=== PATIENT | male | born 1990 | race Caucasian/White ===

== ENCOUNTER 2016-07-19 14:42 | Emergency (ER) ==
[2016-07-19 14:52] VITALS: BP 152/97
[2016-07-19 15:04] LABS: URINE CULTURE PL NEEDED? NO; URINE SOURCE CLEAN CATCH
[2016-07-19 15:22] LABS: UR AMPHETAMINES QUAL NONE DETECTED (NONE DETECT); UR BARBITUATES QUAL NONE DETECTED (NONE DETECT); UR BENZODIAZEPIN QUAL NONE DETECTED (NONE DETECT); UR CANNABINOIDS QUAL NONE DETECTED (NONE DETECT); UR COCAINE QUAL NONE DETECTED (NONE DETECT); UR MDMA QUAL NONE DETECTED (NONE DETECT); UR METHADONE QUAL NONE DETECTED (NONE DETECT); UR METHAMPHETAMINE QUAL NONE DETECTED (NONE DETECT); UR OPIATES QUAL NONE DETECTED (NONE DETECT); UR OXYCODONE QUAL NONE DETECTED (NONE DETECT); UR PCP QUAL NONE DETECTED (NONE DETECT); UR TCA QUAL NONE DETECTED (NONE DETECT)
[2016-07-19 15:24] LABS: BILIRUBIN URINE NEGATIVE (NEGATIVE); BLOOD URINE NEGATIVE (NEGATIVE); CLARITY CLEAR (CLEAR); COLOR YELLOW; GLUCOSE URINE NEGATIVE (NEGATIVE); LEUKOCYTES URINE NEGATIVE (NEGATIVE); NITRITE URINE NEGATIVE (NEGATIVE); PROTEIN URINE NEGATIVE (NEGATIVE); UROBILINOGEN URINE NORMAL
[2016-07-19 15:25] LABS: URINE CAST NONE SEEN /LPF; URINE CRYSTAL NONE SEEN /HPF; URINE EPITHELIAL CELLS <10 /HPF (<10)
[2016-07-19] MEDS ORDERED: M.V.I.-12 10 ML, FOLIC ACID 1 MG, MAGNESIUM SULFATE 1 GM, THIAMINE 100 MG in NS 1,000 ML IV ONE (15:37)
--- NOTE | 2016-07-19 15:44 | PROVIDER DOCUMENTATION ---
[id number] Abuse/Overdose - General Chief Complaint: Intoxicated Stated Complaint: LIGHT HEADED/INTOXICATED Time Seen by Provider: 07/19/16 15:15 Source: patient Allergies/Adverse Reactions: Allergies Allergy/AdvReac Type Severity Reaction Status Date / Time No Known Allergies Allergy Verified 10/29/15 19:12 Home Medications: Home Medication List Medication Instructions Recorded Confirmed Last Taken Type Cetirizine [Zyrtec] 10 mg PO DAILY #20 tablet 10/29/15 Unknown Rx Phenylephrine HCl/Cod/Prometh 2 tsp PO Q6H PRN PRN #120 syrup 10/29/15 Unknown Rx [Phenergan Vc-Codeine Syrup] Prednisone 10 mg PO DIRECTED #9 tablet 10/29/15 Unknown Rx - History of Present Illness-Drug/Alcohol Nature of Presenting Problem: 25 yo male presents to ER with c/o dizziness for the past 1-2 hours. He did state that he works 1900 to 0600 am this morning. He did admit to drinking 1/ 2 pint of alcohol at 2-3 am at work. He is also taking suboxone for opioid addiction. This episode of drinking or use began:: last night ([id number]) Severity: reports: moderate Situational problems related to:: reports: N/A Psychiatric Complaints: reports: denies symptoms Associated Symptoms: reports: dizziness Any injuries associated with this episode of intoxication?: No Similar Symptoms Previously?: No Recently seen or treated by another doctor?: No - Substance Abuse Substance Use: reports: alcohol, opiates (past) - Alcohol Abuse Last Drink?: 02:00 Type and amount of last drink?: 1/2 pint Usually drinks:: occasionally Other alcohols?: reports: N/A Review of Systems - Adult - REVIEW OF SYSTEMS - ADULT Constitutional: reports: no symptoms reported Eyes: reports: no symptoms reported Ears, Nose, Mouth & Throat: reports: no symptoms reported Cardiovascular: reports: no symptoms reported Respiratory: reports: no symptoms reported Gastrointestinal: reports: no symptoms reported Genitourinary: reports: no symptoms reported Musculoskeletal: reports: no symptoms reported Integumentary: reports: no symptoms reported Neurological: reports: see HPI, dizziness/vertigo Psychiatric: reports: no symptoms reported Endocrine: reports: no symptoms reported Hematologic/Lymphatic: reports: no symptoms reported Allergic/Immunologic: reports: no symptoms reported All Other Systems: Reviewed and Negative Past History - Adult - PAST MEDICAL HISTORY-ADULT Review of Records: reports: Old Records Reviewed, Nursing Assessment Review, Medications Reviewed, Social history reviewed & non-contributory. Major Childhood Illnesses: reports: denies history Cardiovascular: reports: denies history Respiratory: reports: asthma Gastrointestinal: reports: denies history Obstetrical/Gynecological: reports: denies history Genitourinary: reports: denies history Musculoskeletal: reports: denies history Neurological: reports: denies history Endocrine/Immune: reports: denies history Other Conditions: reports: denies history - PRIOR SURGERIES/PROCEDURES Surgical/Procedure History: reports: tonsillectomy - IMMUNIZATION STATUS Childhood Immunizations: See Nurse Assessment Flu Vaccine: See Nurse Assessment - FAMILY HISTORY Family History: reviewed, not pertinent - SOCIAL HISTORY Smoking: chew Provider spent 3-5 mins advising pt. on dangers of tobacco.: Discussed manners to quit use, and f/u contacts for add'l counseling. Substance Use: alcohol, opiates Alcohol Use Frequency: 3-4 times a week Number of drinks per typical drinking period:: 5-10 drinks Living Situation: family Physical Exam-General - PHYSICAL EXAM-ADULT Initial Vital Signs Reviewed: Yes - CONSTITUTIONAL General Appearance: alert, no apparent distress, slow to respond - EYES Eyes: pink conjunctivae - HEAD, EARS, NOSE, MOUTH & THROAT HENMT: normocephalic/atraumatic, moist mucous membranes - RESPIRATORY Respiratory: lungs clear, normal breath sounds, no respiratory distress - CARDIOVASCULAR Cardiovascular: normal peripheral pulses, regular rate, rhythm - GASTROINTESTINAL (ABDOMEN) Abdominal Exam: non tender, soft - MUSCULOSKELETAL Back Exam: normal inspection, no CVA tenderness, no vertebral tenderness Extremity: normal inspection, no pedal edema, other (staggered gait) - SKIN Integumentary: normal color, normal turgor, warm/dry - NEUROLOGIC Neurologic: abnormal gait (staggered), EOM palsy - PSYCHIATRIC Psych/Mental Status: oriented x 3, disheveled, other (intoxicated) Progress - PLAN OF CARE/RESULTS Progress/Plan/Lab Results: 1455-Counseling patient on the dangers of drinking while at work. Explained that he needs to see about going to a rehab. He is at high risk for alcohol abuse d/t hx of opioid abuse. 1630-Discussed results/dx/tx/discharge and follow up with patient and father; they verbalized understanding. Laboratory Tests 07/19/16 07/19/16 07/19/16 14:53 14:53 15:05 WBC RBC Hgb Hct MCV MCH MCHC RDW Std Deviation Plt Count MPV Immature Gran % (Auto) Neut % (Auto) Lymph % (Auto) [place] % (Auto) Eos % (Auto) Baso % (Auto) Immature Gran # (Auto) Neut # (Auto) Lymph # (Auto) [place] # (Auto) Eos # (Auto) Baso # (Auto) Sodium Potassium Chloride Carbon Dioxide Anion Gap BUN Creatinine Estimated GFR/1.73 m2 BUN/Creatinine Ratio Glucose Calculated Osmolality Calcium Total Bilirubin AST ALT Alkaline Phosphatase Total Protein Albumin Globulin Albumin/Globulin Ratio Urine Source CLEAN CATCH Urine Color YELLOW Urine Clarity CLEAR Urine pH 5.0 Ur Specific [place] 1.010 Urine Protein NEGATIVE Urine Ketones NEGATIVE Urine Blood NEGATIVE Urine Nitrite NEGATIVE Urine Bilirubin NEGATIVE Urine Urobilinogen NORMAL Urine Microscopic RBC Not Reportable Urine WBC NEGATIVE Ur Epithelial Cells <10 Urine Crystals NONE SEEN Urine Bacteria NEGATIVE Urine Casts NONE SEEN Urine Yeast NONE SEEN Urine Glucose NEGATIVE Salicylates Urine Opiates Screen NONE DETECTED Ur Oxycodone Screen NONE DETECTED Urine Methadone Screen NONE DETECTED Acetaminophen Ur Barbituates Screen NONE DETECTED Ur Tricyclics Screen NONE DETECTED Ur Phencyclidine Scrn NONE DETECTED Ur Amphetamines Screen NONE DETECTED U Methamphetamines Scrn NONE DETECTED Urine MDMA Screen NONE DETECTED U Benzodiazepines Scrn NONE DETECTED Urine Cocaine Screen NONE DETECTED U Cannabinoids Screen NONE DETECTED Plasma/Serum Ethyl Alc 250 H 07/19/16 07/19/16 15:05 15:05 WBC 6.47 RBC 4.97 Hgb 14.7 Hct 42.7 MCV 85.9 MCH 29.6 MCHC 34.4 RDW Std Deviation 12.7 Plt Count 221 MPV 9.1 Immature Gran % (Auto) 0.0 Neut % (Auto) 40.2 L Lymph % (Auto) 39.3 [place] % (Auto) 9.1 Eos % (Auto) 10.5 H Baso % (Auto) 0.9 H Immature Gran # (Auto) 0.00 Neut # (Auto) 2.60 Lymph # (Auto) 2.54 [place] # (Auto) 0.59 Eos # (Auto) 0.68 Baso # (Auto) 0.06 Sodium 141 Potassium 3.2 L Chloride 100 Carbon Dioxide 25 Anion Gap 16 BUN 8 Creatinine 0.8 Estimated GFR/1.73 m2 > 60 BUN/Creatinine Ratio 10 Glucose 102 Calculated Osmolality 280 Calcium 9.5 Total Bilirubin 1.20 H AST 26 ALT 14 Alkaline Phosphatase 83 Total Protein 7.6 Albumin 5.3 H Globulin 2.0 Albumin/Globulin Ratio 2.0 Urine Source Urine Color Urine Clarity Urine pH Ur Specific [place] Urine Protein Urine Ketones Urine Blood Urine Nitrite Urine Bilirubin Urine Urobilinogen Urine Microscopic RBC Urine WBC Ur Epithelial Cells Urine Crystals Urine Bacteria Urine Casts Urine Yeast Urine Glucose Salicylates < 3.00 L Urine Opiates Screen Ur Oxycodone Screen Urine Methadone Screen Acetaminophen < 1.2 L Ur Barbituates Screen Ur Tricyclics Screen Ur Phencyclidine Scrn Ur Amphetamines Screen U Methamphetamines Scrn Urine MDMA Screen U Benzodiazepines Scrn Urine Cocaine Screen U Cannabinoids Screen Plasma/Serum Ethyl Alc Orders Category Date Time Status ED: Orthostatic Vital Signs (E as directed Care 07/19/16 15:38 Active IV Insertion ORDERED Care 07/19/16 15:37 Inactive ACETAMINOPHEN [TDM] Stat Lab 07/19/16 15:05 Completed CBC WITH ELECTRONIC DIFF [HEME] Stat Lab 07/19/16 15:05 Completed COMPREHENSIVE METABOLIC PANEL [CHEM] Stat Lab 07/19/16 15:05 Completed ETOH [ALCOHOL BLOOD] Stat Lab 07/19/16 15:05 Completed SALICYLATES [TDM] Stat Lab 07/19/16 15:[address] W/POSS RFLX CULT [URINALYSIS] Stat Lab 07/19/16 14:53 Completed URINE DRUG SCREEN PL Stat Lab 07/19/16 14:53 Completed Mvi [M.v.i.-12] 10 ml Med 07/19/16 15:37 Discontinued Folic Acid 1 mg Magnesium Sulfate 1 gm Thiamine 100 mg 0.9% Sodium Chloride Inj [Ns] 1,000 ml IV NOW Vital Signs - 24 hr 07/19/16 14:46 Temperature 98.3 F Pulse Rate 93 H Respiratory 18 Rate Blood Pressure 152/97 O2 Sat by Pulse 100 Oximetry Departure - Departure Time of Disposition Order: 16:35 DIAGNOSIS: Alcohol abuse, Dizziness, Hypokalemia Alcohol intoxication Qualifiers: Complication of substance-induced condition: uncomplicated Qualified Code(s): F10.120 - Alcohol abuse with intoxication, uncomplicated Disposition: HOME 01 Certified Medical Emergency: Emergent Condition: Stable Additional Instructions: Strongly suggest getting into a rehab program. Decrease alcohol intake to stop. Stay well hydrated. Drink gatorade. ED Follow Up Instructions: You have been treated by a care provider in the Emergency Department. These instructions are being provided to you so you can have an understanding of how to care for yourself upon discharge. Upon discharge from the Emergency Department, you are responsible for making arrangements for follow-up care by a physician of your choice. Take all prescribed medications as directed. Return to the Emergency Department immediately for any new or worsening symptoms. You may call the Physician Referral phone number at [phone] to obtain a list of Physicians who are taking new patients. Referrals: None,PCP [Primary Care Provider] - Instructions: Alcohol Intoxication, [id number] Attestation - Physician/ ALYSE Attestation Patient care was provided by Advanced Practice Provider:: Yes Advanced Practice Provider:: Sarina Astorga Advanced Practice Provider documentation review:: The Mid-level provider documentation, treatment plan and medical decision making was reviewed by the physician who agrees with all treatment and medical decision making by the P. Physician Attestation - Physician Attestation I, the provider, attest to the following statement:: Sarina Astorga Physician documentation Attestation:: This documentation recorded by the scribe accurately reflects the service I personally performed and the decisions made by me.
[2016-07-19 15:54] LABS: MANUAL DIFF NEEDED? NO
[2016-07-19 16:07] LABS: BASO% 0.9 % (0.0-0.8); EOS# 0.68 X1000 (0.0-0.7); EOS% 10.5 % (0.0-10.0); HEMATOCRIT 42.7 % (42.0-52.0); HEMOGLOBIN 14.7 g/dL (14.0-18.0); LYMPH# 2.54 X1000 (1.2-3.4); LYMPH% 39.3 % (20.5-51.1); MCH 29.6 PG (27-31); MCHC 34.4 g/dL (33-37); MCV 85.9 FL (81-99); MONO# 0.59 X1000 (0.11-0.59); MONO% 9.1 % (1.7-9.3); MPV 9.1 FL (7.4-10.4); NEUT% 40.2 % (42.2-75.2); PLT 221 X1000 (130-400); RBC 4.97 XMIL (4.7-6.1)
[2016-07-19 16:08] LABS: ACETAMINOPHEN < 1.2 ug/mL (10-30); AGAP 16; ALBUMIN 5.3 g/dL (3.5-5.0); ALKALINE PHOSPHATASE 83 U/L (32-122); BUN 8 mg/dL (8-22); CALCIUM 9.5 mg/dL (8.8-10.2); CHLORIDE 100 mmol/L (98-107); COSMO 280; GOT 26 U/L (10-34); GPT 14 U/L (10-44); POTASSIUM 3.2 mmol/L (3.5-5.1); SODIUM 141 mmol/L (136-145); TCO2 25 mmol/L (25-35); TOTAL PROTEIN 7.6 g/dL (6.3-8.3)
== END 2016-07-19 17:00 | disposition home or self-care (01) ==
LOC: P.ED 14:42
DX: E87.6 Hypokalemia (principal); R42 Dizziness and giddiness; F10.120 Alcohol abuse with intoxication, uncomplicated; R26.0 Ataxic gait; F17.220 Nicotine dependence, chewing tobacco, uncomplicated; Z71.6 Tobacco abuse counseling
CPT/HCPCS: 80053; 80305; 81001; 85025; 99283; G0480; J3411; J3475; J7030; 80320; 80324; 80329

== ENCOUNTER 2019-03-04 20:51 | Inpatient (IN) ==
[2019-03-04] MEDS ORDERED: NS 1,000 ML IV ONE (20:58)
[2019-03-04 21:45] LABS: BASO# 0.09 X1000 (0.0-0.2); BASO% 1.2 % (0.0-0.8); EOS# 0.98 X1000 (0.0-0.7); HEMATOCRIT 45.1 % (42.0-52.0); HEMOGLOBIN 15.3 g/dL (14.0-18.0); IMM GRAN# 0.03 X1000 (0.0-0.04); IMM GRAN% 0.4 % (0.0-0.5); LYMPH# 2.38 X1000 (1.2-3.4); LYMPH% 31.6 % (20.5-51.1); MCH 29.7 PG (27-31); MCHC 33.9 g/dL (33-37); MCV 87.6 FL (81-99); MONO# 0.55 X1000 (0.11-0.59); MONO% 7.3 % (1.7-9.3); MPV 8.8 FL (7.4-10.4); NEUT% 46.5 % (42.2-75.2); PLT 240 X1000 (130-400); RBC 5.15 XMIL (4.7-6.1); RDW 13.6 % (11.5-14.5); WBC 7.53 X1000 (4.8-10.8)
[2019-03-04 21:58] LABS: UR AMPHETAMINES QUAL NONE DETECTED (NONE DETECT); UR BARBITUATES QUAL NONE DETECTED (NONE DETECT); UR BENZODIAZEPIN QUAL NONE DETECTED (NONE DETECT); UR CANNABINOIDS QUAL NONE DETECTED (NONE DETECT); UR COCAINE QUAL NONE DETECTED (NONE DETECT); UR METHADONE QUAL NONE DETECTED (NONE DETECT); UR METHAMPHETAMINE QUAL NONE DETECTED (NONE DETECT); UR OPIATES QUAL NONE DETECTED (NONE DETECT); UR OXYCODONE QUAL PRESUMPTIVE POSITIVE (NONE DETECT); UR PCP QUAL NONE DETECTED (NONE DETECT); UR PROPOXYPHENE QUAL NONE DETECTED (NONE DETECT); UR TCA QUAL NONE DETECTED (NONE DETECT)
[2019-03-04 22:04] LABS: BILIRUBIN URINE NEGATIVE (NEGATIVE); BLOOD URINE NEGATIVE (NEGATIVE); CLARITY CLEAR (CLEAR); COLOR YELLOW; GLUCOSE URINE NEGATIVE (NEGATIVE); KETONE URINE NEGATIVE (NEGATIVE); LEUKOCYTES URINE NEGATIVE (NEGATIVE); NITRITE URINE NEGATIVE (NEGATIVE); PROTEIN URINE NEGATIVE (NEGATIVE); SP GRAVITY URINE 1.005; UROBILINOGEN URINE NORMAL
[2019-03-04 22:05] LABS: URINE SOURCE CLEAN CATCH
[2019-03-04 22:07] LABS: ACETAMINOPHEN < 1.2 ug/mL (10-30); AGAP 12; ALBUMIN 4.9 g/dL (3.5-5.0); ALKALINE PHOSPHATASE 97 U/L (32-122); BUN 8 mg/dL (8-22); CHLORIDE 107 mmol/L (98-107); COSMO 289; CREATININE 0.8 mg/dL (0.7-1.2); ESTIMATED GFR > 60; GLUCOSE 103 mg/dL (70-104); GOT 23 U/L (10-34); GPT 17 U/L (10-44); POTASSIUM 4.1 mmol/L (3.5-5.1); SALICYLATES < 3.00 mg/dL (3-10); SODIUM 146 mmol/L (136-145); TCO2 27 mmol/L (25-35); TOTAL PROTEIN 7.9 g/dL (6.3-8.3)
[2019-03-04 22:08] LABS: URINE BACTERIA NEGATIVE /HFP; URINE EPITHELIAL CELLS <10 /HPF (<10); URINE RBC <10 /HPF (<10); URINE WBC <10 /HPF (<10)
--- NOTE | 2019-03-04 22:50 | PROVIDER DOCUMENTATION ---
This chart was entered by Cristela Ruvalcaba Scribe, acting as scribe for Ferny Terry CRNP. [id number] Abuse/Overdose - General Chief Complaint: Intoxicated Stated Complaint: INTOXICATED Time Seen by Provider: 03/04/19 20:57 Source: family Unable to obtain history due to:: altered Allergies/Adverse Reactions: Allergies Allergy/AdvReac Type Severity Reaction Status Date / Time No Known Allergies Allergy Verified 03/04/19 20:55 Home Medications: Home Medication List Medication Instructions Recorded Confirmed Last Taken Type Ketorolac [Toradol] 10 mg PO Q6H PRN PRN #20 tab 02/23/18 Unknown Rx Ondansetron Odt [Zofran 8Mg Odt] 8 mg PO Q6H PRN PRN #12 tab 02/23/18 Unknown Rx Oxycodone HCl/Acetaminophen 1 ea PO Q6H PRN PRN #12 tab 02/23/18 Unknown Rx [Percocet 5-325 mg Tablet] - History of Present Illness-Drug/Alcohol Nature of Presenting Problem: pt is a 28 yr old male presenting via EMS, mother with pt reports she found him intoxicated at home approx 1630 today, since finding him, his condition worsened, pt went from walking and talking to slumped over and not responding to them. mother reports pt has hx of alcohol and drug abuse, has been spiraling, drinking more over last month, mother reports they left home for short time today and found him when they returned. mother reports she found three 50ML empty bottles of 99 proof liquor in his room and 2 unopened bottles of same. mother also reports pt has a hx of drug abuse but has been clean x 10 yrs. on e xam pt is alert, disoriented, hostile, belligerent and cursing family and staff. when asked questions pt repeats "What do you think?" pt does not answer any questions appropriately This episode of drinking or use began:: this afternoon Situational problems related to:: reports: N/A Psychiatric Complaints: reports: agitated, hostile Any injuries associated with this episode of intoxication?: No Similar Symptoms Previously?: Yes - Substance Abuse Substance Use: reports: alcohol Duration of Abuse? (years): 10 - Alcohol Abuse Other alcohols?: reports: N/A Review of Systems - Adult - REVIEW OF SYSTEMS - ADULT ROS:: limited per condition Constitutional: reports: no symptoms reported Eyes: reports: no symptoms reported Ears, Nose, Mouth & Throat: reports: no symptoms reported Cardiovascular: reports: no symptoms reported Respiratory: reports: no symptoms reported Gastrointestinal: reports: no symptoms reported Genitourinary: reports: no symptoms reported Musculoskeletal: reports: no symptoms reported Integumentary: reports: no symptoms reported Neurological: reports: no symptoms reported Psychiatric: reports: alcohol/drug dependence Endocrine: reports: no symptoms reported Hematologic/Lymphatic: reports: no symptoms reported Allergic/Immunologic: reports: no symptoms reported All Other Systems: Reviewed and Negative Past History - Adult - PAST MEDICAL HISTORY-ADULT Review of Records: reports: Old Records Reviewed, Nursing Assessment Review, Medications Reviewed, Social history reviewed & non-contributory. Major Childhood Illnesses: reports: denies history Cardiovascular: reports: denies history Respiratory: reports: asthma Gastrointestinal: reports: denies history Obstetrical/Gynecological: reports: denies history Genitourinary: reports: denies history Musculoskeletal: reports: denies history Neurological: reports: denies history Endocrine/Immune: reports: denies history Other Conditions: reports: denies history - PRIOR SURGERIES/PROCEDURES Surgical/Procedure History: reports: tonsillectomy - IMMUNIZATION STATUS Childhood Immunizations: See Nurse Assessment Flu Vaccine: See Nurse Assessment - FAMILY HISTORY Family History: reviewed, not pertinent - SOCIAL HISTORY Substance Use: alcohol Alcohol Use Frequency: every day Living Situation: family Physical Exam-General - PHYSICAL EXAM-ADULT Initial Vital Signs Reviewed: Yes - CONSTITUTIONAL General Appearance: alert, no apparent distress, other (hostile, beligerent, cursing staff and family) - EYES Eyes: PERRL/EOMI - HEAD, EARS, NOSE, MOUTH & THROAT HENMT: normocephalic/atraumatic, moist mucous membranes - NECK Neck: full range of motion, supple - RESPIRATORY Respiratory: lungs clear, normal breath sounds - CARDIOVASCULAR Cardiovascular: normal peripheral pulses, regular rate, rhythm - GASTROINTESTINAL (ABDOMEN) Abdominal Exam: non tender, soft - LYMPHATIC Lymphatic: no adenopathy - MUSCULOSKELETAL Back Exam: normal inspection, no CVA tenderness, no vertebral tenderness Extremity: normal range of motion, non-tender, normal inspection - SKIN Integumentary: normal color, normal turgor, warm/dry - NEUROLOGIC Neurologic: grossly normal - PSYCHIATRIC Psych/Mental Status: disoriented x 3, other (hostile, beligerent, cursing) Progress - PLAN OF CARE/RESULTS Progress/Plan/Lab Results: Vital Signs - 8 hr 03/04/19 20:47 Temperature 97.9 F Pulse Rate 87 Respiratory Rate 20 Blood Pressure 125/88 O2 Sat by Pulse Oximetry 95 Laboratory Results - last 24 hr 03/04/19 03/04/19 03/04/19 21:25 21:25 21:27 WBC 7.53 RBC 5.15 Hgb 15.3 Hct 45.1 MCV 87.6 MCH 29.7 MCHC 33.9 RDW Std Deviation 13.6 Plt Count 240 MPV 8.8 Immature Gran % (Auto) 0.4 Neut % (Auto) 46.5 Lymph % (Auto) 31.6 [place] % (Auto) 7.3 Eos % (Auto) 13.0 H Baso % (Auto) 1.2 H Immature Gran # (Auto) 0.03 Neut # (Auto) 3.50 Lymph # (Auto) 2.38 [place] # (Auto) 0.55 Eos # (Auto) 0.98 H Baso # (Auto) 0.09 Sodium Potassium Chloride Carbon Dioxide Anion Gap BUN Creatinine Estimated GFR/1.73 m2 BUN/Creatinine Ratio Glucose Calculated Osmolality Calcium Total Bilirubin AST ALT Alkaline Phosphatase Total Protein Albumin Globulin Albumin/Globulin Ratio Urine Source CLEAN CATCH Urine Color YELLOW Urine Clarity CLEAR Urine pH 5.0 Ur Specific [place] 1.005 Urine Protein NEGATIVE Urine Ketones NEGATIVE Urine Blood NEGATIVE Urine Nitrite NEGATIVE Urine Bilirubin NEGATIVE Urine Urobilinogen NORMAL Urine Microscopic RBC <10 Urine WBC NEGATIVE Urine Microscopic WBC <10 Ur Epithelial Cells <10 Urine Bacteria NEGATIVE Urine Glucose NEGATIVE Salicylates Urine Opiates Screen NONE DETECTED Ur Oxycodone Screen PRESUMPTIVE POSITIVE A Urine Methadone Screen NONE DETECTED U Propoxyphene Qual NONE DETECTED Acetaminophen Ur Barbituates Screen NONE DETECTED Ur Tricyclics Screen NONE DETECTED Ur Phencyclidine Scrn NONE DETECTED Ur Amphetamines Screen NONE DETECTED U Methamphetamines Scrn NONE DETECTED U Benzodiazepines Scrn NONE DETECTED Urine Cocaine Screen NONE DETECTED U Cannabinoids Screen NONE DETECTED Plasma/Serum Ethyl Alc 03/04/19 03/04/19 21:27 21:27 WBC RBC Hgb Hct MCV MCH MCHC RDW Std Deviation Plt Count MPV Immature Gran % (Auto) Neut % (Auto) Lymph % (Auto) [place] % (Auto) Eos % (Auto) Baso % (Auto) Immature Gran # (Auto) Neut # (Auto) Lymph # (Auto) [place] # (Auto) Eos # (Auto) Baso # (Auto) Sodium 146 H Potassium 4.1 Chloride 107 Carbon Dioxide 27 Anion Gap 12 BUN 8 Creatinine 0.8 Estimated GFR/1.73 m2 > 60 BUN/Creatinine Ratio 10 Glucose 103 Calculated Osmolality 289 Calcium 9.0 Total Bilirubin 0.50 AST 23 ALT 17 Alkaline Phosphatase 97 Total Protein 7.9 Albumin 4.9 Globulin 3.0 Albumin/Globulin Ratio 2.0 Urine Source Urine Color Urine Clarity Urine pH Ur Specific [place] Urine Protein Urine Ketones Urine Blood Urine Nitrite Urine Bilirubin Urine Urobilinogen Urine Microscopic RBC Urine WBC Urine Microscopic WBC Ur Epithelial Cells Urine Bacteria Urine Glucose Salicylates < 3.00 L Urine Opiates Screen Ur Oxycodone Screen Urine Methadone Screen U Propoxyphene Qual Acetaminophen < 1.2 L Ur Barbituates Screen Ur Tricyclics Screen Ur Phencyclidine Scrn Ur Amphetamines Screen U Methamphetamines Scrn U Benzodiazepines Scrn Urine Cocaine Screen U Cannabinoids Screen Plasma/Serum Ethyl Alc 403 H* Orders Category Date Time Status Admit - [facility] Routine AdmDCTranf 03/04/19 22:38 Active Restraint Initiate NonViolent ONCE Care 03/04/19 22:12 Active ACETAMINOPHEN [TDM] Stat Lab 03/04/19 21:27 Completed ALCOHOL BLOOD Stat Lab 03/04/19 21:27 Completed AMMONIA [CHEM] Stat Lab 03/04/19 22:47 Ordered CBC WITH ELECTRONIC DIFF [HEME] Stat Lab 03/04/19 21:27 Completed COMPREHENSIVE METABOLIC PANEL [CHEM] Stat Lab 03/04/19 21:27 Completed SALICYLATES [TDM] Stat Lab 03/04/19 21:27 Completed UA NIMS W/REFLEX CULT PL [URINALYSIS] Stat Lab 03/04/19 21:25 [address] DRUG SCREEN PL Stat Lab 03/04/19 21:25 Completed VITAMIN B12 Stat Lab 03/04/19 22:47 Ordered 0.9% Sodium Chloride Inj [Ns] 1,000 ml Med 03/04/19 20:58 Discontinued IV 999 mls/hr Transfer/Admit Order [TRANSFER] Routine Transfer 03/04/19 22:39 Ordered Family verbalizes an understanding of POC and agrees with treatment rendered here today. Patient will be transferred to [facility] main to the ICU. Result Diagrams: 03/04/19 21:27 03/04/19 21:27 - REASSESSMENT Reassessment #1 Time Reassessed: 21:15 Status: worsening (pt became combative, began striking his parents. pt placed in 4 point restraints, cath UA obtained.) - CONSULTS/PCP/HOSPITALIST Notification #1 *Consult/PCP/Hospitalist*: Dr Lovett Time Discussed: 22:35 Reason/Comments: discussed plan of care for pt admit Consult Disposition: Admit (to ICU at [facility]) Departure - Departure Date of Disposition Decision: 03/04/19 Time of Disposition Decision: 22:48 DIAGNOSIS: Alcohol intoxication Qualifiers: Complication of substance-induced condition: with unspecified complication Qualified Code(s): F10.929 - Alcohol use, unspecified with intoxication, unspecified Opioid intoxication Qualifiers: Complication of substance-induced condition: with unspecified complication Qualified Code(s): F11.929 - Opioid use, unspecified with intoxication, unspecified Disposition: ADMITTED INPATIENT Certified Medical Emergency: Emergent Condition: Critical Referrals and Follow-Ups: None,PCP [Primary Care Provider] - - Critical Care Note This patient required my direct & personal management of CC.: No Attestation - Physician/ ALYSE Attestation Patient care was provided by Advanced Practice Provider:: Yes Advanced Practice Provider:: Ferny Terry Advanced Practice Provider documentation review:: The Mid-level provider documentation, treatment plan and medical decision making was reviewed by the physician who agrees with all treatment and medical decision making by the [facility]. The physician spent face to face time with patient:: No Advanced Practice Provider documentation review:: Supervising physician onsite and consulted in the evaluation and care of this patient. The physician did not have a face to face encounter with the patient. This chart was documented by the indicated scribe, (Cristela Ruvalcaba Scribe) and accurately reflects the services I performed and decisions made by me, Ferny Terry CRNP, as attested by the provider's signature.
[2019-03-05] MEDS ORDERED: NS 1,000 ML IV ONE ×2 (00:59→02:00)
[2019-03-05] MEDS ORDERED: ZOFRAN IV PRN ×2 (00:59→01:15)
[2019-03-05] MEDS ORDERED: ATIVAN IV PRN ×2 (00:59→01:14)
[2019-03-05] MEDS ORDERED: M.V.I.-12 10 ML, FOLIC ACID 1 MG, MAGNESIUM SULFATE 1 GM, THIAMINE 100 MG in NS 1,000 ML IV SCH ×4 (01:14→14:00)
[2019-03-05] MEDS ORDERED: TYLENOL PO PRN (01:14)
--- NOTE | 2019-03-05 02:06 | HISTORY AND PHYSICAL ---
PRIMARY CARE PHYSICIAN: None. DATE AND TIME: 03/05/2019 at 0015. CHIEF COMPLAINT: Intoxication. HISTORY OF PRESENT ILLNESS: Mr. Meyer is a 28-year-old male who has no known medical problems, except he does have a history of current alcohol abuse and a history of previous drug abuse. He was brought to [facility] on 03/04/2019 at 2051 hours. According to the ER notes, he presented via EMS. The patient's mother was with him and reported that she found him to be intoxicated at home earlier in the day, at 1630 hours. Though, over the next few hours, his condition did worsen. He went from walking and talking to being slumped over and she was having difficulty getting him to respond. She reported that he does have a history of alcohol and drug abuse, had previously been clean from drugs for 10 years. Though, she did report to the ER physician that he has recently been drinking more over the last month. According to nurses report, he did become agitated at one point in the ER and did have to be restrained. In the ER at [place], he was noted to have a slightly elevated sodium level of 146, though his alcohol was 403. He did have a urine drug screen that was positive for oxycodone. Due to his intoxication and agitation, Dr. Lopes did call Dr. Lovett for admission. He was transferred from [facility] to [facility] ICU for admission. Upon my evaluation, the patient was sitting up in bed. He was alert and oriented to person, place, time, and situation. It was difficult at times to get him to answer my questions, though he is cooperative. His mood and behavior are controlled at this time. The patient denied any other previous history of medical problems. He does report that he uses alcohol on a regular basis, though not every day. He states that he can drink for a few days in a row, though can go a few days without drinking without having any reported withdrawal symptoms. He did report a previous history of drug abuse in the past, which he did state was opiates and benzodiazepines. Upon further questioning, the patient did ultimately admit that he did take oxycodone yesterday which would have been March 03. He denied any other illicit drug use today in addition to his alcohol use. He reported that he had drank an alcohol called 99 bananas, which from my understanding is a 99 proof alcohol. He states that he drank at home today and was at home the whole time. He denied any injury. He denied falling or hitting his head. He denied any known loss of consciousness. He denied any pain at this time. He also denied any history of seizures. He did report that he has been depressed in the past, though was not officially diagnosed and was never treated for depression. He denies any previous history of suicidal thoughts, suicide attempt or self-harm. He denies any suicidal ideations at this time as well. REVIEW OF SYSTEMS: A 14-point review of systems was conducted with the patient. All were negative except for pertinent positives mentioned above HPI. The patient denied any headache, dizziness, chest pain, shortness of breath, abdominal pain, nausea, vomiting, diarrhea, dysuria, urinary frequency, or any pain, numbness or tingling in extremities. PAST MEDICAL HISTORY: 1. Alcohol abuse. 2. History of polysubstance drug abuse. 3. Nicotine dependence. The patient does report he uses smokeless tobacco. PAST SURGICAL HISTORY: Tonsillectomy. SOCIAL HISTORY: As previously mentioned in HPI, the patient does have a history of alcohol and drug abuse. He reports that he does not drink every day, though will go a few days drinking every day, though can go a few days without drinking without having withdrawal symptoms. He did have a previous history of what he reported to be opiate and benzodiazepine abuse. He stated this was several years ago. He had been clean for a while, though did report that he did use oxycodone yesterday, on March 03, though he denied any other illicit drug use. His mother was reportedly at bedside with him at [facility], though I do not have any other family members present with him at this time. FAMILY HISTORY: He reported that his Father has a history of epilepsy. Though he states that he does not know of his mother or sister having any other medical problems. ALLERGIES: Patient reports no known allergies. HOME MEDICATIONS: At this time, the patient does not report any prescription medication use. We are waiting for his official med reconciliation to be completed. DIAGNOSTIC DATA: White blood cell count is 7530, hemoglobin 15.3, hematocrit 45.1, platelet count is 240,000. Sodium 146, potassium 4.1, chloride 107, serum bicarb is 27, BUN 8, creatinine 0.8, glucose 103, calcium 9. Liver function tests are within normal limits. Ammonia was 50. Urinalysis was obtained via clean catch, was negative for protein, ketones, blood, nitrites, white blood cells or bacteria. Urine drug screen was positive for oxycodone. Salicylate level was less than 3. Acetaminophen level was less than 1.2, and his serum alcohol was 403. PHYSICAL EXAMINATION: VITAL SIGNS: Temperature 97.9 degrees, heart rate 85, respirations 20, blood pressure was 151/89, oxygen saturation is 96% on room air. GENERAL: Mr. Meyer is a 28-year-old male who is resting in the ICU bed. He was in no acute distress. He was awake, alert, and able to answer questions appropriately. Though, I did have to repeat a question more than once sometimes before he would answer. HEENT: Head is atraumatic, normocephalic. Pupils are equal, round, reactive to light, were 4 mm bilaterally and brisk. Oral mucosa was moist. Oropharynx was clear. NECK: Supple. Trachea midline. The patient did not report any pain or tenderness upon palpation of his C-spine. CARDIOVASCULAR: Patient had S1, S2 present. No murmurs, gallops, rubs appreciated with a regular rate and rhythm. PULMONARY: Patient has symmetrical chest expansion bilaterally. Lung sounds are clear to auscultation in bilateral full lepe. ABDOMEN: Soft, nontender, nondistended. Bowel sounds are present in all 4 quadrants, were normoactive. EXTREMITIES: No cyanosis or edema noted. Pulse, motor, and sensory were intact in all extremities. Radial and pedal pulses were 2+ bilaterally. INTEGUMENTARY: Patient's skin is pink, warm, and dry. NEUROLOGICAL: Patient is alert and oriented to person, place, time and situation. He is able to move all extremities. As previously mentioned, the patient does have to be prompted to answer questions and I had to ask questions more than once during my assessment, though he did ultimately respond appropriately. Other than this, there was no other focal neurological deficits noted. ASSESSMENT AND PLAN: 1. Alcohol intoxication. Treatment of this, we will keep the patient in ICU for close monitoring. We will provide IV hydration as well as daily banana bag infusion as well. We are going to check his magnesium. We will closely monitor him for signs of alcohol withdrawal. We have ordered p.r.n. Ativan IV for agitation and withdrawal symptom if needed. We will recheck a CMP, magnesium, and alcohol level in the morning. He will be placed on continuous cardiac telemetry and pulse oximetry as well as frequent vital signs and neurological checks. We will continue to monitor closely. 2. Polysubstance abuse. The patient does report alcohol abuse as well as recent oxycodone use. We will continue to monitor the patient closely. Once his condition has improved, we will discuss further with him the importance of stopping drinking as well as using illicit drugs. We can order a social media executive consult if needed if the patient does request assistance with a treatment program as well. We will continue to follow. 3. Nicotine dependence. The patient does report that he uses smokeless tobacco. We will continue to patent counsel him on the cessation of this as well. 4. Deep vein thrombosis prophylaxis. He will be provided with sequential compression devices. The patient has been placed in ICU for close monitoring. We will continue treatment, as mentioned above. We will recheck his labs in the morning. Further orders and recommendations pending hospital course, diagnostic studies, and physician evaluation. Dictated by MOISÉS Diaz for Kassi Lovett MD cc: Kassi Lovett MD MTDD
--- NOTE | 2019-03-05 03:18 | HISTORY AND PHYSICAL ---
ADDENDUM: Mr. Esvin Meyer was seen at [facility] intoxicated, presumably from alcohol he drank at home and possibly opioids. Both of these were positive when he was tested at [place]. His blood alcohol was 400 and he had positive opioids in his urine drug screen. A couple of hours into his stay there, he became agitated requiring restraints. He was brought over because of this to our ICU to be monitored. When I saw him, the patient was A and O x3, calm, cooperative. Denies drinking alcohol heavily. He maybe drinks alcohol every 2 to 3 days and not heavily, according to the patient. I guess for now we will just observe patient. If he winds up becoming agitated, we will give him p.r.n. Ativan. He will get a banana bag and we will reassess his alcohol level tomorrow morning. I do anticipate that a drop of 20 mg an hour, his alcohol level should still be a shade below 200. cc: Kassi Lovett MD
[2019-03-05 06:29] LABS: BASO# 0.07 X1000 (0.0-0.2); BASO% 0.9 % (0.0-0.8); EOS# 0.89 X1000 (0.0-0.7); EOS% 11.4 % (0.0-10.0); HEMATOCRIT 43.2 % (42.0-52.0); HEMOGLOBIN 14.6 g/dL (14.0-18.0); IMM GRAN# 0.02 X1000 (0.0-0.04); IMM GRAN% 0.3 % (0.0-0.5); LYMPH# 2.91 X1000 (1.2-3.4); LYMPH% 37.3 % (20.5-51.1); MCH 30.1 PG (27-31); MCHC 33.8 g/dL (33-37); MCV 89.1 FL (81-99); MONO# 0.62 X1000 (0.11-0.59); MONO% 7.9 % (1.7-9.3); MPV 8.7 FL (7.4-10.4); NEUT% 42.2 % (42.2-75.2); PLT 216 X1000 (130-400); RBC 4.85 XMIL (4.7-6.1); RDW 13.7 % (11.5-14.5); WBC 7.81 X1000 (4.8-10.8)
[2019-03-05 06:42] LABS: AGAP 13; ALB/GLOB RATIO 1.7; ALBUMIN 4.3 g/dL (3.5-5.0); ALKALINE PHOSPHATASE 80 U/L (32-122); BUN 7 mg/dL (8-22); CALCIUM 7.6 mg/dL (8.8-10.2); CHLORIDE 107 mmol/L (98-107); COSMO 284; CREATININE 0.9 mg/dL (0.7-1.2); ESTIMATED GFR > 60; GLUCOSE 84 mg/dL (70-104); GOT 20 U/L (10-34); GPT 14 U/L (10-44); MAGNESIUM 2.2 mg/dL (1.5-2.7); POTASSIUM 3.9 mmol/L (3.5-5.1); SODIUM 144 mmol/L (136-145); TCO2 24 mmol/L (25-35); TOTAL BILIRUBIN 0.47 mg/dL (0.20-1.00); TOTAL PROTEIN 6.8 g/dL (6.3-8.3)
[2019-03-06 06:20] VITALS: BP 138/82
--- NOTE | 2019-03-06 16:55 | DISCHARGE SUMMARY ---
ADMISSION DATE: 03/04/2019 DISCHARGE DATE: 03/06/2019 DIAGNOSES: 1. Alcohol intoxication. 2. Polysubstance abuse. 3. Nicotine dependence. 4. Oxycodone use. HOSPITAL COURSE: Mr. Meyer was brought into the emergency room via EMS after his mother found him slumped over and unresponsive. He was found to have a blood alcohol of 403 on arrival to the emergency room. During his stay in the emergency room, the patient did become agitated, having to be restrained at one point. He was transferred to [facility], placed in ICU for close monitoring, given a banana bag, IV hydration, along with p.r.n. IV Ativan. Thankfully, he had no seizures. He had no complications. Today he is awake and alert. He is cooperative, able to tolerate a diet without any nausea, vomiting, or abdominal pain, and he is ready for discharge. DISCHARGE VITAL SIGNS: Blood pressure is 138/80 with a heart rate of 56. Respirations are 18. Temperature is 98.9 degrees. DISCHARGE PHYSICAL EXAMINATION: Cardiovascular: Regular rate and rhythm. S1 and S2 appreciated. He has no lower extremity edema. Calves nontender. Peripheral pulses palpable x4 extremities. Pulmonary: Breath sounds clear. No increased work of breathing noted. Chest rise and falls symmetric with respiration. Gastrointestinal: Abdomen is soft, nontender, nondistended with bowel sounds in all 4 quadrants. Neurologic: Alert and oriented x3. Skin: Warm and dry. DISCHARGE MEDICATIONS: None. FOLLOW-UP: He is to follow up with his primary care provider as needed. Alcohol cessation has been discussed with the patient. The patient has been in rehab in the past, and he was strongly urged to look into rehab, Alcoholics Anonymous for assistance in alcohol cessation, to which he did voice understanding. He was instructed to return to the ER for any syncope, dizziness, chest pain, palpitations, temperature greater than 100, any shortness of breath, cough, chills, any nausea, vomiting, diarrhea, constipation, black or bloody vomitus or stools, or for any questions or concerns that he may have. He was discharged home in stable condition with his father. TIME SPENT: This is a greater than 30 minute discharge. Dictated by MOISÉS Gustafson for Terrell Soto MD cc: KasandraMOISÉS Pardo MD
== END 2019-03-06 07:45 | disposition home or self-care (01) | DRG 897 ==
LOC: P.ED 20:51 → ICU 23:18 → SUATTDRO 23:18
PROVIDERS: ATTEND Internal Medicine